=== PATIENT | male | born 1965 ===

== ENCOUNTER 2016-06-08 04:21 | Emergency (ER) | payer BC ==
[2016-06-08] MEDS ORDERED: IOPAMIDOL 370 (76%) 100 ML VIAL IV ONE (04:22)
[2016-06-08] MEDS ORDERED: SUCRALFATE 1 G/10 ML DOSE ONE (05:07)
[2016-06-08] MEDS ORDERED: MAALOX/LIDO2%VISC/SIMETHICONE 40 ML BOT ONE (05:07)
[2016-06-08] MEDS ORDERED: FAMOTIDINE 20 MG TABLET ONE (05:07)
[2016-06-08] MEDS ORDERED: MORPHINE SULFATE 4 MG/ML SYRINGE ONE (05:08)
[2016-06-08] MEDS ORDERED: PROCHLORPERAZINE 5 MG/ML 2 ML VIAL ONE (05:08)
[2016-06-08] MEDS ORDERED: LACTATED RINGERS 1,000 ML ONE (05:08)
[2016-06-08 07:10] LABS: BASO % 0.3 % (0.2-1.0); HEMOGLOBIN 14.6 gm/l (14.0-18.0); IMM NEUT # 0.1 K/mm3 (0-0.2); IMM NEUT% 0.4 % (0-1); LYMPH % 4.2 % (15-45); MONO % 3.7 % (4-12); NEUT % 91.4 % (43-75)
[2016-06-08 07:21] LABS: ABSOLUTE NEUTROPHIL COUNT 13.2 K/mm3 (1.8-7.7); BASO # 0.1 K/mm3 (0.0-0.2); HEMATOCRIT 42.6 % (32.0-52.0); LYMPH # 0.6 (1.0-4.8); MEAN CELL VOLUME 85.9 fl (80.0-94.0); MEAN CORPUSCULAR HEMOGLOBIN 29.4 pg (27.0-31.0); MEAN CORPUSCULAR HGB CONC 34.3 g/dl (33.0-37.0); MONO # 0.5 (0.0-0.8); PLATELET COUNT 207 K/mm3 (130-400)
[2016-06-08 07:35] LABS: ALB/GLOB RATIO 1.6 (>1.0); ALBUMIN 4.1 gm/dL (3.5-5.7); CALCIUM 8.9 mg/dL (8.6-10.3)
[2016-06-08 08:28] LABS: BAND 6 % (0-10); BASOPHIL 0 % (0-1); EOSINOPHIL 0 % (1-3); LYMPHOCYTE 4 % (15-45); MONOCYTE 2 % (4-12); NEUTROPHILS 88 % (43-75); TOTAL CELLS COUNTED 100
[2016-06-08 08:29] LABS: PLATELET ESTIMATE NORMAL (NORMAL)
--- NOTE | 2016-06-08 09:00 | CT ---
Exam Type: ABD/PELVIS W/ CON Date and Time: 06/08/2016 4:55 AM Clinical information: Upper abdominal pain today. Comparison: None Technique: Contiguous axial 4 mm images were obtained from the lung bases through the pelvis after the uneventful IV administration of 100 cc of [id number]. Sagittal and coronal reformations with high resolution lung algorithm images were also obtained at this time. CT DI: 11.7 DLP 629.7 FINDINGS: Lung base : Patient breathing motion artifact limits assessment the lung bases. Dependent and atelectatic changes are present. There may be a groundglass nodular density at the right base on image 11. Visualized heart:There is no pericardial effusion. LIVER: 2 small to characterize hypodensity is noted within the posterior segment right lobe of the liver. Probable minimal diffuse fatty infiltration is noted. BILE DUCTS: normal caliber. GALLBLADDER: No calcified gallstones. Normal caliber wall. PANCREAS: within normal limits. SPLEEN: within normal limits. ADRENALS: within normal limits. KIDNEYS: within normal limits. Stomach and small BOWEL: Normal caliber. Large bowel: Air and stool are noted within the large bowel. Appendix is dilated up with 13 mm on axial image 84. Air is noted throughout the appendix. No periappendicular fat stranding is identified. Finding is of unknown clinical significance. The descending colon is decompressed limiting assessment, as is the sigmoid colon. LYMPH NODES: No enlarged mesenteric lymph nodes. PERITONEUM: no ascites or free air, no fluid collection. VESSELS: within normal limits RETROPERITONEUM: within normal limits. ABDOMINAL WALL: Fat-containing left open inguinal ring is present. Bladder: Normal BONES: Compression deformity of L2 is present, of unknown chronicity. No significant retropulsion is noted. Mild height loss is present. Multilevel degenerative changes of the spine are seen. Alignment is intact otherwise. IMPRESSION: Dilation of the appendix without evidence of periappendicular fat stranding. Air is noted throughout the appendix. Findings likely relate to normal variant anatomy though correlation with physical exam and history for appendicitis would be recommended. Otherwise no acute inflammatory process is noted within the abdomen or pelvis. Possible ground glass nodule at the right base though study is somewhat limited by patient breathing motion artifact. Follow-up exam could be helpful in further assessment. Incidental findings as above. Preliminary report was provided by [facility] at approximately 0700 hours on 06/08/2016.
== END 2016-06-08 08:15 | disposition home or self-care (01) ==
LOC: ED 04:21
DX: K52.9 Noninfective gastroenteritis and colitis, unspecified (principal)
CPT/HCPCS: 83690; 85025; 80053; 84484; 74177; 96375; 99284 ×2; 96374; 96361; 93005; A9270 ×3; J0780; J2270; J7120; Q9967